=== PATIENT | male | born 1960 | race Two or more races ===

== ENCOUNTER 2017-03-29 06:09 | Day surgery (SDC) | payer MEDICARE, OTHER ==
--- NOTE | 2017-03-28 23:58 | Pre-op HX & Phy Repo 2 SIG ---
DATE OF ADMISSION: 03/29/2017 PREOPERATIVE DIAGNOSIS: Retained lens material, right eye with severe proliferative diabetic retinopathy. BRIEF NOTE: This is a second [facility] admission for Mr. Clement, who is a very nice 56-year-old gentleman, who underwent a successful vitrectomy in the left eye in the previous month, but now presents with retained lens material in the right eye status post cataract surgery. His past ocular history is also remarkable for bilateral corneal transplant surgery and a prior cataract surgery on the left side, which was successful. He underwent cataract surgery on the right eye earlier last week, which was complicated by dislodging and retention of the portion of nuclear material. PAST MEDICAL HISTORY: Remarkable for diabetes for unknown amount of time. On prior examination, he was noted to have severe proliferative diabetic retinopathy in both eyes and was awaiting a vitrectomy on the right pending completion of cataract surgery. CURRENT MEDICATIONS: Include Lantus insulin as well as topical ophthalmic medications. ALLERGIES: He has no known allergies. SOCIAL HISTORY: He is a nonsmoker. PHYSICAL EXAMINATION: Best vision count, at the time of admission was counting fingers at 6 feet in the right eye, hand motion at 5 feet in the left with pressures of 10 and 23. There was wondering with poor fixation in the right eye. Confrontation estrada were unreliable. Pupils were sluggishly reactive. Anterior segment exam on the right eye showed a healed penetrating keratoplasty. There was scattered posterior synechiae and an irregular pupil. A posterior chamber lens, sulcus fixated was seen. The left fundus of the synechiae penetrating keratoplasty with trace flare in the anterior chamber. The lens implant was well positioned in the bag was seen. Fundus examination of the right eye showed mild vitreous hemorrhage in the haze of his large portion of retained nuclear material at the 6 o'clock position. The retina showed what appeared to be widespread proliferative retinopathy with mild preretinal fibrosis and extensive sclerosis of the retinal vessels. The left fundus showed clear vitreous. There was extensive peripheral laser, significant laser scars and regressing proliferative retinopathy were seen. General physical examination was performed by the patient's physician prior to the cataract surgery, and will be included. ASSESSMENT: 1. Retained lens material, right eye. 2. Severe proliferative diabetic retinopathy, right eye. PLAN: The plan is to perform a pars plana vitrectomy with fragmentation and removal of the retained lens material. In addition, an extensive panretinal laser will be performed as well as injection of Avastin. The risks and benefits of surgery were gone over with the patient with potential infection, hemorrhage, retinal detachment, glaucoma, and loss of the eye. The risk of anesthesia was discussed. The patient understands and consents to the surgery, which will be performed on tomorrow morning. Issa Avalos M.D. DR: AURELIANO JOB#: [id number] CC:
[2017-03-29] VITALS (11 sets, daily range): BP systolic 112–141; BP diastolic 76–94
[~2017-03-29] VITALS: Ht 175.3 cm; Wt 63.5 kg
[~2017-03-29 06:09] MED LIST: Avastin 10mg Inj IVITRE ONE; Cyclopentolate 1% Opth Sol ONE; Flurbiprofen 0.03% Opth Sol 2.5ml ONE; Gatifloxacin Opth Solution 0.5% ONE; Phenylephrine 2.5% Op Soln ONE; Pred Forte 1% Opth Susp 1ml RIGHT EYE SCH
--- NOTE | 2017-03-29 06:17 | Pre-Procedure Note/Attestation ---
Pre-Procedure Note/Attestation Complete Prior to Procedure Planned Procedure: right Procedure Narrative: PPV, fragmentation of retained lens material, membrane peel, endolaser, Avastin injection R eye. Indications for Procedure Pre-Operative Diagnosis: Retained lens material, Proliferative diabetic retinopathy R eye. Attestation I attest that I discussed the nature of the procedure; its benefits; risks and complications; and alternatives (and the risks and benefits of such alternatives ), prior to the procedure, with the patient (or the patient's legal access service representative). I attest that, if there was a reasonable possibility of needing a blood transfusion, the patient (or the patient's legal access service representative) was given the [place] [facility] [employer] [facility] standardized written summary, pursuant to the [place] Blood Safety Act ([place] Health and Safety Code # 1645, as amended). I attest that I re-evaluated the patient just prior to the surgery and that there has been no change in the patient's H&P, except as documented below: LARISA ABARCA March 29, 2017 06:17
[2017-03-29] MEDS ORDERED: Norco 5mg/325mg tab ORAL PRN ×2 (06:30→08:45)
[2017-03-29] MEDS: Cyclopentolate 1% Opth Sol RIGHT EYE SCH ×3 (06:46→07:09)
[2017-03-29] MEDS: Gatifloxacin Opth Solution 0.5% RIGHT EYE SCH ×3 (06:46→07:09)
[2017-03-29] MEDS: Phenylephrine 2.5% Op Soln RIGHT EYE SCH ×3 (06:46→07:09)
[2017-03-29] MEDS: Flurbiprofen 0.03% Opth Sol 2.5ml RIGHT EYE SCH ×3 (06:46→07:09)
[2017-03-29] MEDS ORDERED: LANTUS SOL100 UNIT/1 SUBQ (07:00)
[2017-03-29] MEDS ORDERED: MIDODRINE HCL2.5 MG ORAL (07:00)
[2017-03-29] MEDS ORDERED: VITAMIN D400 INTLU ORAL (07:00)
[2017-03-29] MEDS ORDERED: BSS 500ml btl ONE (07:04)
[2017-03-29] MEDS ORDERED: Kenalog-40 1ml Vial ONE (07:05)
[2017-03-29] MEDS ORDERED: Dexamethasone 4mg/ml vial ONE (07:05)
[2017-03-29] MEDS ORDERED: Maxitrol Opth Oint 3.5gm ONE (07:05)
[2017-03-29] MEDS ORDERED: Tetracaine 0.5% Opth Soln ONE (07:05)
[2017-03-29] MEDS ORDERED: EPINEPHrine 1mg/1ml Amp ONE (07:06)
[2017-03-29] MEDS ORDERED: Povidone-Iodine 5% opth solution ONE (07:06)
[2017-03-29] MEDS ORDERED: Kenalog-10 5ml Inj ONE (07:06)
[2017-03-29] MEDS ORDERED: Lidocaine 2% MPF 5ml Vial INJ ONE (07:06)
[2017-03-29] MEDS ORDERED: Bupivacaine 0.75% 30ml vial INJ ONE (07:07)
[2017-03-29] MEDS ORDERED: BSS 15ml BTL ONE (07:07)
[2017-03-29] MEDS ORDERED: Triamcinolone 40mg/ml PF Vial ONE (07:07)
[2017-03-29] MEDS ORDERED: Sodium Hyaluronate 10 mg/ml 0.85ml ONE (07:08)
[2017-03-29] MEDS ORDERED: LR 1000ml ONE (07:45)
[2017-03-29] MEDS ORDERED: Alfentanil 2ml Inj ONE (07:45)
[2017-03-29] MEDS ORDERED: NS Irrig 1000ml ONE (07:45)
[2017-03-29] MEDS ORDERED: Sterile Water Irrig 1000ml IRRIG ONE (07:45)
[2017-03-29] MEDS ORDERED: Midazolam 2mg/2ml Inj ONE (07:45)
[2017-03-29] MEDS ORDERED: Propofol 10mg/ml 20ml IV ONE (07:45)
[2017-03-29] MEDS ORDERED: Lidocaine 1% MPF 10mg/ml 5ml ONE (07:45)
--- NOTE | 2017-03-29 08:32 | Anethesia Preoperative Eval ---
Anesthesia Pre-op PMH/ROS General Date of Evaluation: March 29, 2017 Time of Evaluation: 07:41 Anesthesiologist: Arun ASA Score: ASA 3 Mallampati Score Class I : Soft palate, uvula, fauces, pillars visible Class II: Soft palate, uvula, fauces visible Class III: Soft palate, base of uvula visible Class IV: Only hard plate visible Mallampati Classification: Class II Surgeon: Robbie Diagnosis: Vitreous Hemorrhage, OD Surgical Procedure: Vitrectomy OD Anesthesia History: none Family History: no anesthesia problems Allergies: Coded Allergies: No Known Allergies (Unverified , 03/26/17) Medications: see eMAR Past Medical History Neurologic/Psychiatric: Reports: CVA Endocrine: Reports: DM HEENT: Reports: cataract (L), cataract (R) Hematology/Immune: Reports: anemia PSxH Narrative: R Cat Ext IOL Anesthesia Pre-op Phys. Exam Physician Exam Last Vital Signs Date Time Temp Pulse Resp B/P Pulse Ox O2 Delivery O2 Flow Rate FiO2 03/29/17 07:20 97.7 81 20 128/82 100 Room Air Constitutional: NAD Neurologic: CN 2-12 intact Cardiovascular: RRR Respiratory: CTA Gastrointestinal: S/NT/ND Airway Exam Mallampati Score: Class II MO: full ROM: full Teeth: intact Anesthesia Pre-op A/P Risk Assessment & Plan Assessment: ASA 3 Plan: GA, BIS Status Change Before Surgery: Kristofer Sanders MD March 29, 2017 08:32
[2017-03-29] MEDS ORDERED: LR 1000ml 1,000 ML IVLG SCH (08:34)
--- NOTE | 2017-03-29 08:36 | Immediate Post-Op Evaluation ---
Immediate Post-Op Evalulation Immediate Post-Op Evalulation Procedure: Vitrectomy OD Date of Evaluation: March 29, 2017 Time of Evaluation: 09:29 IV Fluids: 600 LR Blood Products: 0 Estimated Blood Loss: 2 Urinary Output: 0 Blood Pressure Systolic: 141 Blood Pressure Diastolic: 94 Pulse Rate: 80 Respiratory Rate: 16 O2 Sat by Pulse Oximetry: 100 Temperature (Fahrenheit): 97.8 Pain Score (1-10): 1 Nausea: No Vomiting: No Complications 0 Patient Status: awake, reacts, patent, extubated, none Hydration Status: adequate Kristofer Dias MD March 29, 2017 08:36
--- NOTE | 2017-03-29 08:37 | 48 Hour Post Anesthesia Eval ---
Post Anesthesia Evaluation Procedure: Vitrectomy OD Date of Evaluation: March 29, 2017 Time of Evaluation: 11:34 Blood Pressure Systolic: 118 0: 74 Pulse Rate: 78 Respiratory Rate: 18 Temperature (Fahrenheit): 97.8 O2 Sat by Pulse Oximetry: 100 Airway: patent Nausea: No Vomiting: No Pain Intensity: 0 Hydration Status: adequate Cardiopulmonary Status: Stable Mental Status/LOC: patient returned to baseline Follow-up Care/Observations: 0 Post-Anesthesia Complications: 0 Follow-up care needed: ready to discharge Kristofer Dias MD March 29, 2017 08:37
[2017-03-29] MEDS ORDERED: Atropine Inj 1mg/10ml Syr IV PRN (08:45)
[2017-03-29] MEDS ORDERED: Oxycodone/Acetaminophen 5-325 ORAL PRN (08:45)
[2017-03-29] MEDS ORDERED: Ketorolac 30mg Inj IV PRN (08:45)
[2017-03-29] MEDS ORDERED: Midazolam 2mg/2ml Inj IVP PRN (08:45)
[2017-03-29] MEDS ORDERED: Metoclopramide 10mg/2ml Inj IVP PRN (08:45)
[2017-03-29] MEDS ORDERED: Hydromorphone 0.5mg/0.5ml inj IVP PRN (08:45)
[2017-03-29] MEDS ORDERED: LORazepam Inj 2mg/ml 1ml IV PRN (08:45)
[2017-03-29] MEDS ORDERED: Ketorolac 60mg Inj IV PRN (08:45)
[2017-03-29] MEDS ORDERED: DiphenhydrAMINE 50mg/ml Inj IVP PRN (08:45)
[2017-03-29] MEDS ORDERED: Meperidine 25mg/0.5ml Inj IV PRN (08:45)
[2017-03-29] MEDS ORDERED: fentaNYL 100 mcg/2 mL IV PRN (08:45)
[2017-03-29] MEDS ORDERED: Norco 7.5mg/325mg tab ORAL PRN (08:45)
--- NOTE | 2017-03-29 09:24 | Brief Operative Note ---
Immediate Post Operative Note Operative Note Chief Complaint: Large object or shadow in vision R eye Pre-op Diagnosis: Retained lens material, Proliferative diabetic retinopathy R eye. Procedure: PPV, Fragmentation of retained lens material, endolaser, Kenalog injection 2 mg , Avastin injection 1.25mg R eye Post-op Diagnosis: Retained lens material, proliferative diabetic retinopathy R eye Post-op Diagnosis: same as pre-op Surgeon: marco a Management Specialist: [email or web address] Anesthesiologist: Arun Anesthesia: general Specimen: none Complications: none Condition: stable Estimated Blood Loss: none Drains: none Implant(s) used?: No LARISA ABARCA March 29, 2017 09:24
--- NOTE | 2017-03-29 18:18 | Operative Note - Dictated ---
DATE OF OPERATION: 03/29/2017 PREOPERATIVE DIAGNOSIS: Severe proliferative diabetic retinopathy, with retained lens material, right eye. POSTOPERATIVE DIAGNOSIS: Severe proliferative diabetic retinopathy, with retained lens material, right eye. PROCEDURES: 1. Pars plana vitrectomy. 2. Fragmentation of retained lens material. 3. Kenalog injection. 4. Endolaser. 5. Avastin injection, right eye. SURGEON: Issa Avalos M.D. PASTEURIZER HELPER: Isak Carl M.D. ANESTHESIA: LMA general. ANESTHESIOLOGIST: Kristofer Dias M.D. JUSTIFICATION FOR SURGERY: This 56-year-old male with a long history of diabetes and cataracts underwent a cataract procedure one week ago, complicated by rupture of the capsule and posterior dislocation of lens material. He is admitted for repair. BRIEF NOTE: The patient was brought to the operative room, placed on OR table in supine position. After a time-out was performed and agreed upon by the staff, general LMA anesthesia was induced by Dr. Dias. He was then given a retrobulbar and Van Lint blocks according to standard protocol. He was then prepped and draped in the normal manner. A lid speculum was inserted into the right eye. A meridian incision was cut through conjunctiva and Tenon's capsule superotemporally, after which using a 23-gauge trocar system, cannulas were placed in all except the infranasal quadrant. Infusion secured inferotemporally. Vitrectomy was begun posterior to the lens. A central core vitrectomy was done followed by peripheral vitrectomy leaving a moderate vitreous skirt. Lens material was noted to float posteriorly. Some of the material could be suctioned with the vitreous cutter, but the firmer nuclear material could not. The supratemporal wound was enlarged to 20-gauge size and using the 20-gauge fragmatome, the lens was gently suctioned and fragmented in the central vitreous. No problems were encountered. More of the vitreous skirt was removed with a cutter. Kenalog was used to aid in visualization of the vitreous. Scleral depression was done and no peripheral breaks, tears, or detachments were seen. The endolaser was brought to the eye and at power of 0.3 bella duration 0.2 seconds, a total of 1026 lesions were applied in a broadband extending from near the ora domi to just posterior to the equator. 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 No problems were encountered. The supranasal cannula was removed, and the wound was noted to be self-sealing. Superotemporally, the wound was closed with interrupted sutures of 8-0 Vicryl followed by closing of the overlying conjunctiva with the same suture, knots buried. Through the infusion cannula, Avastin 1.25 mg was injected. The eye was reinflated and this cannula also removed with the wound noted to be self-sealing. Subconjunctival Decadron and gentamicin were then injected inferiorly and Maxitrol ointment and atropine drops were instilled. The eye was patched and shielded, and the patient was taken to recovery in excellent condition after smooth extubation. There were no complications. Issa Avalos M.D. DR: REBECCA JOB#: [id number] CC: Isak Carl M.D.; Fax#: [phone]
== END 2017-03-29 11:45 | disposition home or self-care (01) ==
LOC: SUR 06:09
DX: H59.021 Cataract (lens) fragments in eye following cataract surgery, right eye (principal); Y84.8 Other medical procedures as the cause of abnormal reaction of the patient, or of later complication, without mention of misadventure at the time of the procedure; Y92.89 Other specified places as the place of occurrence of the external cause; E11.3591 Type 2 diabetes mellitus with proliferative diabetic retinopathy without macular edema, right eye; E11.42 Type 2 diabetes mellitus with diabetic polyneuropathy; I95.89 Other hypotension; Z79.4 Long term (current) use of insulin; Z94.7 Corneal transplant status
CPT/HCPCS: 67039; 82962; 93005; J0171; J1100; J2250; J2405; J2704; J3301; J3470; J3490; J7120; J9035; 94003; 94150; J3300